=== PATIENT | female | born 1955 | race Caucasian/White ===

== ENCOUNTER → 2016-11-24 | Outpatient (CLI) | payer OTHER ==
[~2016-11-24] MED LIST: ASPIRIN325; CRESTOR10 MG PO; DESYREL50 MG PO; LEVOTHROID88 MCG PO; LEXAPRO 10 MG T10 MG PO; MECLIZINE HCL25 M1 PO; MOBIC15 MG PO; PHENERGAN25 MG RE; PLAVIX 75 MG TA75 MG PO; VALIUM5 MG PO; WELLBUTRIN XL150 M1 PO
== END ==
LOC: RAD 07:43
DX: R10.9 Unspecified abdominal pain (principal); R14.0 Abdominal distension (gaseous)

== ENCOUNTER → 2016-12-09 | Outpatient (CLI) | payer OTHER | LOC: NUC 06:44 | DX: R10.10 Upper abdominal pain, unspecified (principal); R14.0 Abdominal distension (gaseous) ==

== ENCOUNTER → 2017-02-17 | Outpatient (CLI) | payer OTHER | LOC: ULTRA 10:42 | DX: I65.23 Occlusion and stenosis of bilateral carotid arteries (principal) ==

== ENCOUNTER → 2017-08-11 | Outpatient (CLI) | payer OTHER | LOC: RAD 08:54 | DX: R05 Cough (principal) ==

== ENCOUNTER → 2017-10-13 | Outpatient (CLI) | payer OTHER | LOC: NUC 06:14 | DX: M85.80 Other specified disorders of bone density and structure, unspecified site (principal) ==

== ENCOUNTER → 2018-05-01 | Outpatient (CLI) | payer OTHER | LOC: RAD 14:38 | DX: Z12.31 Encounter for screening mammogram for malignant neoplasm of breast (principal) ==

== ENCOUNTER → 2018-06-13 | Outpatient (CLI) | payer OTHER | LOC: ULTRA 08:23 | DX: I65.23 Occlusion and stenosis of bilateral carotid arteries (principal); I77.9 Disorder of arteries and arterioles, unspecified ==

== ENCOUNTER → 2018-09-04 | Outpatient (CLI) | payer OTHER | LOC: CAT 08-28 10:34 | DX: I65.23 Occlusion and stenosis of bilateral carotid arteries (principal); G51.0 Bell's palsy; I25.10 Atherosclerotic heart disease of native coronary artery without angina pectoris; M19.90 Unspecified osteoarthritis, unspecified site; E78.00 Pure hypercholesterolemia, unspecified; I10 Essential (primary) hypertension; Z82.49 Family history of ischemic heart disease and other diseases of the circulatory system; Z82.3 Family history of stroke; Z83.438 Family history of other disorder of lipoprotein metabolism and other lipidemia; Z87.891 Personal history of nicotine dependence ==

== ENCOUNTER → 2019-02-01 | Outpatient (CLI) | payer OTHER | LOC: CAT 08:33 | DX: Z13.6 Encounter for screening for cardiovascular disorders (principal); E78.00 Pure hypercholesterolemia, unspecified; I25.10 Atherosclerotic heart disease of native coronary artery without angina pectoris ==

== ENCOUNTER → 2019-07-31 | Outpatient (CLI) | payer OTHER | LOC: SJCVCIMAG 10:10 | DX: Z01.818 Encounter for other preprocedural examination (principal); I65.23 Occlusion and stenosis of bilateral carotid arteries; I25.10 Atherosclerotic heart disease of native coronary artery without angina pectoris; E78.5 Hyperlipidemia, unspecified; Z95.828 Presence of other vascular implants and grafts ==

== ENCOUNTER → 2019-08-02 | Outpatient (CLI) | payer OTHER | LOC: CAT 10:40 | DX: Z13.6 Encounter for screening for cardiovascular disorders (principal); E78.00 Pure hypercholesterolemia, unspecified; I25.10 Atherosclerotic heart disease of native coronary artery without angina pectoris ==

== ENCOUNTER → 2020-04-11 | Outpatient (CLI) | payer OTHER | LOC: SJCVCIMAG 11:23 | PROVIDERS: ATTEND Internal Medicine Cardiovascular Disease | DX: I65.23 Occlusion and stenosis of bilateral carotid arteries (principal); I10 Essential (primary) hypertension; E78.00 Pure hypercholesterolemia, unspecified; E78.1 Pure hyperglyceridemia; Z86.73 Personal history of transient ischemic attack (TIA), and cerebral infarction without residual deficits ==

== ENCOUNTER → 2020-05-01 | Outpatient (CLI) | payer OTHER | LOC: RAD 11:05 | PROVIDERS: ATTEND Neuromusculoskeletal Medicine & OMM | DX: Z12.31 Encounter for screening mammogram for malignant neoplasm of breast (principal) ==

== ENCOUNTER → 2020-09-17 | Outpatient (CLI) | payer OTHER | LOC: LAB 08:44 | PROVIDERS: ATTEND Family Medicine | DX: R05 Cough (principal); Z20.822 Contact with and (suspected) exposure to COVID-19 ==

== ENCOUNTER → 2021-02-26 | Outpatient (CLI) | payer BC | LOC: SJCVCIMAG 07:24 | PROVIDERS: ATTEND Internal Medicine Cardiovascular Disease | DX: I10 Essential (primary) hypertension (principal) ==